=== PATIENT | female | born 1945 | race Caucasian/White ===

== ENCOUNTER 2020-11-28 13:51 | Emergency (ER) | payer MEDICARE, OTHER ==
[~2020-11-28] VITALS: Ht 154.9 cm; Wt 62.2 kg
[2020-11-28] MEDS ORDERED: DILTIAZEM120 MG PO (14:57)
[2020-11-28] MEDS ORDERED: PRAVASTATIN SOD20 MG PO (14:58)
[2020-11-28] MEDS ORDERED: SERTRALINE HCL50 MG PO (14:58)
[2020-11-28] MEDS ORDERED: OMEPRAZOLE DR20 MG PO (14:59)
[2020-11-28] MEDS ORDERED: MAXIDE1 COMBO PO (15:00)
[2020-11-28] MEDS ORDERED: HYDRALAZINE HCL50 MG PO (15:01)
[2020-11-28] MEDS ORDERED: MEDDOSEPAK PO (15:17)
[2020-11-28] MEDS ORDERED: ULTRAM50 MG PO (15:17)
[2020-11-28] MEDS ORDERED: FLEXERIL5 M1 PO (15:17)
[2020-11-28 15:50] VITALS: BP 141/84
== END 2020-11-28 15:50 | disposition home or self-care (01) ==
LOC: ED 13:51
DX: M51.17 Intervertebral disc disorders with radiculopathy, lumbosacral region (principal); I10 Essential (primary) hypertension; I49.1 Atrial premature depolarization; F17.210 Nicotine dependence, cigarettes, uncomplicated